=== PATIENT | male | born 1950 | race American Indian/Alaskan Native ===

== ENCOUNTER 2021-10-10 08:27 | Emergency (ER) | payer SELFPAY ==
[2021-10-10 08:45] VITALS: BP 118/62
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
== END 2021-10-10 12:33 | disposition home or self-care (01) ==
LOC: ED 08:27
DX: T14.8XXA Other injury of unspecified body region, initial encounter (principal); Y09 Assault by unspecified means; Y93.89 Activity, other specified; Y92.89 Other specified places as the place of occurrence of the external cause; Y99.9 Unspecified external cause status; F10.20 Alcohol dependence, uncomplicated
CPT/HCPCS: 99283